=== PATIENT | female | born 1990 | race Caucasian/White ===

== ENCOUNTER 2017-05-07 01:53 | Inpatient (IN) | payer OTHER ==
[2017-05-07] MEDS ORDERED: Dibucaine 1% 28.35 GM TUBE PR PRN (03:35)
[2017-05-07] MEDS ORDERED: Witch Hazel PAD* JAR TOPICAL PRN (03:35)
[2017-05-07] MEDS ORDERED: Acetaminophen TAB* 325 MG PO PRN (03:35)
[2017-05-07] MEDS ORDERED: Glycerin ADULT SUPP PR PRN (03:35)
[2017-05-07] MEDS ORDERED: OXYTOCIN* 10 UNITS/ML 1 ML VIAL IM ONE (03:35)
[2017-05-07] MEDS ORDERED: Misoprostol TAB* 200 MCG ONE (03:45)
[2017-05-07] MEDS ORDERED: OXYTOCIN* 10 UNITS/ML 1 ML VIAL ONE (03:45)
[2017-05-07] MEDS: Ibuprofen TAB* 600 MG PO PRN ×3 (04:42→18:03)
[2017-05-07] MEDS: Docusate CAP* 100 MG PO SCH ×3 (09:47→23:10)
[2017-05-07] MEDS: FLUoxetine CAP* 20 MG PO SCH (21:00)
[2017-05-08] MEDS: Ibuprofen TAB* 600 MG PO PRN ×3 (04:17→21:22)
[2017-05-08 07:38] LABS: Hematocrit 27 % (35-47); Hemoglobin 9.4 g/dl (12.0-16.0); Mean Corpuscular HGB Conc 35 g/dl (31-36); Mean Corpuscular Hemoglobin 31 pg (27-31); Mean Corpuscular Volume 89 fL (80-97); Mean Platelet Volume 8 um3 (7.4-10.4); Red Blood Count 3.06 10^6/ul (4.0-5.4); Red Cell Distribution Width 13 % (10.5-15); White Blood Count 10.4 10^3/ul (3.5-10.8)
[2017-05-08] MEDS: Docusate CAP* 100 MG PO SCH ×3 (09:39→21:21)
[2017-05-08] MEDS: Ferrous Gluconate TAB* 324 MG TAB PO SCH ×2 (09:40→21:21)
[2017-05-08] MEDS: FLUoxetine CAP* 20 MG PO SCH ×2 (09:40→21:22)
[2017-05-09] MEDS: Ibuprofen TAB* 600 MG PO PRN ×2 (04:07→16:23)
[2017-05-09] MEDS: Ferrous Gluconate TAB* 324 MG TAB PO SCH (09:28)
[2017-05-09] MEDS: Docusate CAP* 100 MG PO SCH ×2 (09:28→16:23)
[2017-05-09 09:54] VITALS: BP 111/66
== END 2017-05-09 16:46 | disposition home or self-care (01) | DRG 560 ==
LOC: MCHOBOUT 01:53 → MCHOB 01:56
PROVIDERS: ADMIT Midwife; ATTEND Midwife
PROC: 10E0XZZ Delivery of Products of Conception, External Approach (ICD-10-PCS; principal; 2017-05-07)
PROC: 4A1HXCZ Monitoring of Products of Conception, Cardiac Rate, External Approach (ICD-10-PCS; 2017-05-07)
PROC: 0W8NXZZ Division of Female Perineum, External Approach (ICD-10-PCS; 2017-05-07)
PROC: 0UQGXZZ Repair Vagina, External Approach (ICD-10-PCS; 2017-05-07)
DX: O99.344 Other mental disorders complicating childbirth (principal); O71.4 Obstetric high vaginal laceration alone; F41.9 Anxiety disorder, unspecified; F32.9 Major depressive disorder, single episode, unspecified; Z3A.39 39 weeks gestation of pregnancy; Z37.0 Single live birth; O90.81 Anemia of the puerperium
CPT/HCPCS: 36415; 85027; A9270-GY; J2590

== ENCOUNTER 2018-12-09 13:37 | Inpatient (IN) | payer OTHER ==
[2018-12-09] MEDS ORDERED: Lactated Ringers 1000 ML Bag* 1,000 ML IV ONE (14:00)
[2018-12-09] MEDS ORDERED: Buffered Lidocaine 1% SYRIN* 1 ML/SYRINGE INTRADERM ONE (14:00)
[2018-12-09] MEDS ORDERED: Lactated Ringers 1000 ML Bag* 1,000 ML IV SCH ×2 (14:00→18:00)
--- NOTE | 2018-12-09 14:10 | HP ---
General Information - Reason for Visit , IUP@40+1, here in active labor - General Information Maternal Age: 28 Grav: 4 Para: 1 SAB: 2 IEA: 0 Estimated Due Date: 12/08/18 Determined By: LMP Gestational Age in Weeks/Days: 40+1 Maternal Blood Type and Rh: B Positive - Results this Serology/RPR Result: Non-Reactive Rubella Result: Immune HBsAg Result: Negative HIV Result: Negative GBS Culture Result: Negative Past Medical History Delivery History: Hx Uncomplicated Vaginal Delivery Delivery History Comment: midline episiotomy Pertinent Past Medical History: See Records Past Medical History Comment: Lyme Disease Depression/anxiety eating disorder Pertinent Past Surgical History: See Records - wisdom tooth extraction Pertinent Family History: See Records Family History Comment: Lyme disease depression/anxiety eating disorder alcoholism obesity asthma arthritis Parkinson - Antepartal Records Antepartal Records: Reviewed, Uncomplicated Review of Systems Constitutional: Uncomfortable Gastrointestinal: Vomiting Genitourinary: No Dysuria, No Bleeding, No Leaking Fluid Musculoskeletal: No Epigastric Pain, Contractions Neurological: No Headache, No Visual Changes Movement: Normal Exam Allergies/Adverse Reactions: Allergies No Known Allergies Allergy (Verified 12/03/18 02:06) temp 97.0, HR 72, RR 22, BP 99/61, O2 100 - Measurements Height: 5 ft 4 in Weight: 197 lb Weight in lbs: [phone] Body Mass Index (BMI): 33.7 Pre- Weight: 160 lb Weight Gained This : 37 lbs and 0 ozs - Exam Breast: Breast Exam Deferred CVA: No CVA Tenderness Extremities: No Edema Heart: Normal Rhythm/Heart Sounds HEENT: No Significant Findings Lungs: Clear Bilaterally Rectal: Rectal Exam Deferred Reflexes: DTR 2+ Thyroid: No Thyromegaly - Abdominal Exam Abdomen Exam: Non-Tender, Fundal Height Consistent with Dates - Ultrasound/Biophysical Profile Ultrasound Status: Not Done Targeted Exam Findings Estimated Weight: 8lbs Cervical Exam: 4cm Effacement: 100% Station: -1 Presenting Part: Vertex Membrane Status: Intact Bleeding/Discharge: None EFM Findings - External Monitor Findings Baseline Heart Rate: 135 External Monitor Findings: Accelerations Present, No Pattern of Variable or Late Decelerations, Variability Moderate External Monitor Findings Comment: No evidence for metabolic acidemia Contractions: Regular - 4-6 minutes Assessment/Plan - Assessment 28yo, , IUP@40+1 in active labor GBS negative, B+ VE: 4/100/-1, intact No evidence of metabolic acidemia Regular contractions - Plan Plan: Admit - Anticipate Vaginal Delivery Plan Comment: VE prn Anticipate progression to - Date/Time of Admission Date of Admission: 12/09/18 Time of Admission: 02:00
--- NOTE | 2018-12-09 15:15 | PN ---
Progress Note - Progress Note Date of Service: 12/09/18 Note: S: Pt uncomfortable with labor contractions. at bedside, supportive. O: FHR: 145, intermittent monitoring A: Vocalizing with contractions, coping well Contractions every 3-4 minutes P: VE PRN Anticipate progression to
[2018-12-09] MEDS ORDERED: Oxytocin in LR* 20 UNITS/1,000 ML BAG IVPB ONE (16:40)
[2018-12-09 17:06] LABS: Hematocrit 39 % (35-47); Mean Corpuscular HGB Conc 34 g/dL (31-36); Mean Corpuscular Hemoglobin 31 pg (27-31); Mean Corpuscular Volume 91 fL (80-97); Mean Platelet Volume 9.4 fL (7.4-10.4); Platelet Count 182 10^3/uL (150-450); Red Blood Count 4.24 10^6 /uL (3.70-4.87); Red Cell Distribution Width 14 % (10.5-15); White Blood Count 12.1 10^3/uL (3.5-10.8)
[2018-12-09] MEDS ORDERED: OXYTOCIN* 10 UNITS/ML 1 ML VIAL ONE (17:23)
[2018-12-09] MEDS ORDERED: Misoprostol TAB* 200 MCG ONE ×2 (17:23→22:34)
[2018-12-09] MEDS ORDERED: Dibucaine 1% 28.35 GM TUBE ONE (17:24)
[2018-12-09] MEDS ORDERED: Witch Hazel PAD* JAR ONE (17:24)
[2018-12-09] MEDS ORDERED: Glycerin ADULT SUPP PR PRN (17:35)
[2018-12-09] MEDS ORDERED: Acetaminophen TAB* 325 MG PO PRN (17:35)
[2018-12-09] MEDS ORDERED: Misoprostol TAB* 200 MCG PR ONE (17:35)
[2018-12-09] MEDS ORDERED: OXYTOCIN* 10 UNITS/ML 1 ML VIAL IM ONE (17:35)
[2018-12-09] MEDS ORDERED: Witch Hazel PAD* JAR TOPICAL PRN (17:35)
[2018-12-09] MEDS ORDERED: Dibucaine 1% 28.35 GM TUBE PR PRN (17:35)
[2018-12-09] MEDS ORDERED: Ibuprofen TAB* 600 MG ONE (17:40)
[2018-12-09] MEDS: Ibuprofen TAB* 600 MG PO PRN (17:47)
[2018-12-09] MEDS ORDERED: Oxytocin in LR* 20 UNITS/1,000 ML BAG IVPB SCH (18:00)
--- NOTE | 2018-12-09 18:11 | PROCNOTE ---
[facility] OB: Delivery Note - Delivery A Date of : 12/09/18 Time of : 16:15 [place] Sex: Female Weight at : 8 lb 6 oz Score 1 Minute: 8 Score 5 Minutes: 8 Gestational Age in Weeks and Days at Delivery: 40 Weeks and 1 Days Delivery Method: Spontaneous Vaginal Labor: Spontaneous Did Patient attempt ?: N/A, No Previous Amniotic Fluid: Clear Estimated Blood Loss: 800 Anesthesia/Analgesia: None Delivered By: Courtney Mittal Nursery Level of Nursery: Regular/Bedside - Perineum Perineal Injury: Perineal Laceration, 1st Degree Perineal Injury Comment: plus right and left labial Perineal Repair: By Delivering Practioner - Events Delivery Events of Note: Pitocin Only After Delivery, Precipitous Delivery, Post - Bleeding - Meds Given Delivery Events of Note Comment: nuchal cord - infant delivered in caul, spontaneously ruptured at delivery of feet - Additional Delivery Notes Additional Delivery Notes: 28 yo at 40+1 weeks admitted in active labor. Progressed to complete. Pt began pushing spontaneously at 1548. Crowned to delivery of liveborn female , in cual, at 1615, with a nuchal cord x2, OA to HOLLIE. Shoulders followed easily. Infant to mother's chest, dried and stimulated with spontaneous cry. 's 8' 8. Cord clamped after pulsation ceased and cut by pt's friend. Spontaneous kelly delivery of intact placenta at 1625. Brisk bleeding precipitated IM pitocin, misoprostol 800mcg MS, and an IV start for pitocin to infuse. Fundus firm. Bleeding resolved. EBL 800mL. After careful inspection a first degree perineal laceration and bilateral labial lacerations were identified and repaired in the usual fashion. Normal anatomy restored, hemostasis achieved. breast feeding. Mother and in stable condition at time of note.
[2018-12-09] MEDS ORDERED: Simethicone TAB* 80 MG TAB.CHEW PO SCH (21:00)
[2018-12-09] MEDS ORDERED: Ammonia Inhalant* 1 EA AMP ONE (21:11)
[2018-12-09] MEDS ORDERED: Lidocaine 1% INJ* 10 MG/ML 30 ML SDV ONE (22:34)
[2018-12-10] MEDS: Docusate CAP* 100 MG PO SCH ×4 (02:33→21:27)
[2018-12-10 08:45] LABS: ABS Lymphocytes 1.2 10^3/ul (1.0-4.8); ABS Monocytes 0.7 10^3/ul (0-0.8); ABS Neutrophils 10.5 10^3/ul (1.5-7.7); Eosinophil % 0.1 %; Hematocrit 30 % (35-47); Hemoglobin 10.2 g/dL (12.0-16.0); Lymphocyte % 9.6 %; Mean Corpuscular HGB Conc 34 g/dL (31-36); Mean Corpuscular Hemoglobin 31 pg (27-31); Mean Corpuscular Volume 90 fL (80-97); Mean Platelet Volume 9.1 fL (7.4-10.4); Platelet Count 156 10^3/uL (150-450); Red Blood Count 3.33 10^6 /uL (3.70-4.87); Red Cell Distribution Width 14 % (10.5-15); White Blood Count 12.4 10^3/uL (3.5-10.8)
[2018-12-10] MEDS ORDERED: Ferrous Gluconate TAB* 324 MG TAB PO SCH (09:00)
[2018-12-10] MEDS: Ibuprofen TAB* 600 MG PO PRN ×3 (09:14→16:40)
[2018-12-10] MEDS ORDERED: Lidocaine 1% INJ* 10 MG/ML 30 ML SDV ONE (10:03)
[2018-12-11] MEDS: Ibuprofen TAB* 600 MG PO PRN ×2 (02:33→09:10)
[2018-12-11] MEDS: Docusate CAP* 100 MG PO SCH (09:10)
[2018-12-11 10:37] VITALS: BP 103/51
== END 2018-12-11 13:21 | disposition home or self-care (01) | DRG 560 ==
LOC: MCHOBOUT 13:37 → MCHOB 13:59
PROVIDERS: ADMIT Advanced Practice Midwife; ATTEND Advanced Practice Midwife
PROC: 10E0XZZ Delivery of Products of Conception, External Approach (ICD-10-PCS; principal; 2018-12-09)
PROC: 0HQ9XZZ Repair Perineum Skin, External Approach (ICD-10-PCS; 2018-12-09)
DX: O48.0 Post-term pregnancy (principal); O72.1 Other immediate postpartum hemorrhage; Z37.0 Single live birth; O99.344 Other mental disorders complicating childbirth; F32.9 Major depressive disorder, single episode, unspecified; O70.0 First degree perineal laceration during delivery; O69.81X0 Labor and delivery complicated by cord around neck, without compression, not applicable or unspecified; O62.3 Precipitate labor; Z3A.40 40 weeks gestation of pregnancy
CPT/HCPCS: 36415; 85025; 85027; 86850; 86900; 86901; A9270-GY; J2590